=== PATIENT | male | born 1995 | race Two or more races ===

== ENCOUNTER 2022-10-14 20:47 | Emergency (ER) | payer SELFPAY ==
[~2022-10-14] VITALS: Ht 172.7 cm; Wt 77.3 kg
[2022-10-14 22:22] LABS: Basophils # (auto) 0 10 ^3/uL (0-0.2); Basophils % (auto) 0.3 % (0.0-2.0); Eosinophils # (auto) 0 10 ^3/uL (0-0.8); Eosinophils % (auto) 0.4 % (0.0-7.0); Hematocrit 40.8 % (41.0-53.0); Hemoglobin 14.4 g/dL (13.5-17.5); Lymphocytes # (auto) 0.9 10 ^3/uL (0.4-5.4); Lymphocytes % (auto) 9.5 % (10.0-50.0); Mean Corpuscular Hemoglobin 31.1 pg (28.0-32.0); Mean Corpuscular Hgb Conc. 35.3 g/dL (32.0-36.0); Monocytes # (auto) 0.7 10 ^3/uL (0-1.3); Monocytes % (auto) 7.9 % (0.0-12.0); Neutrophils # (auto) 7.7 10 ^3/uL (1.6-8.6); Neutrophils % (auto) 81.9 % (37.0-80.0); Red Blood Cells 4.64 10^6/uL (4.5-5.90); Red Cell Distribution Width 13.4 % (11.8-14.3); White Blood Cell 9.4 10^3/uL (4.4-10.8)
[2022-10-14 22:26] LABS: Albumin 3.9 g/dL (3.4-5.0); Calcium 8.4 mg/dL (8.5-10.1); Potassium 3.6 mmol/L (3.5-5.1)
[2022-10-14 22:29] LABS: BUN/Creatinine Ratio 7.2 (10.0-20.0); Bilirubin, Total 0.8 mg/dL (0.2-1.0); INR 1.15 (0.9-1.15); Partial Thromboplastin Time 26.1 sec (24.6-33.4); Total Protein 6.6 g/dL (6.4-8.2)
[2022-10-15 01:25] VITALS: BP 107/57
== END 2022-10-15 01:29 | disposition home or self-care (01) ==
LOC: ER 20:50
DX: S06.0XAA Concussion with loss of consciousness status unknown, initial encounter (principal); W22.8XXA Striking against or struck by other objects, initial encounter; Y93.89 Activity, other specified; Y92.89 Other specified places as the place of occurrence of the external cause; Y99.8 Other external cause status
CPT/HCPCS: 36415; 70450; 72125; 80053; 84484; 85025; 85610; 85730